=== PATIENT | male | born 1980 | race African-American/Black ===

== ENCOUNTER 2017-02-10 06:03 | Emergency (ER) | payer OTHER ==
[2017-02-10 06:13] VITALS: BP 124/76; BMI 25.6
--- NOTE | 2017-02-10 06:51 | DR.GENAD ---
HPI - PCP Primary Care Physician: TEREZA - Complaint/Symptoms Chief Complaint:: LEFT LOWER ABDOMINAL PAIN; DENIES DYSURIA. 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 Self Treatment fo Chief Complaint: TYLENOL - Nurses notes reviewed Nurses Notes Review: Yes - Source History Provided: Patient - Mode of Arrival Mode of Arrival: Ambulatory - Timing Onset of Chief Complaint: 02/09/17 Came on: Suddenly - Duration Duration: Intermittent How lon Duration: Days - Location Location: lowwer abdomin - Severity Severity: Moderate - Modifying Factors Worsens:: lifting - Associated Signs and Symptoms Associated Signs and Symptoms: pain <VINNIE DANGELO - Last Filed: 02/10/17 08:18> - HPI Comment HPI Comment: LEFTED HEAVY DOOR AT WORK RECENTLY.. DENIES DYSURIA. NO FEVER. - Complaint/Symptoms Chief Complaint Doctors Comments: LEFT LOWER ABD PAIN. <CHARI CHAVIRA - Last Filed: 02/11/17 08:58> PMH - PMH Past Medical History: No Past Surgical History: Yes Surgical History: Ortho Surgery Past Surgical History Comment: RIGHT KNEE AND RIGHT FOOT - Family History History of Family Medical Conditions: No - Social History Type of Tobacco Use: Cigarettes Alcohol Use: None Do you use any recreational Drugs:: No Lives With: Family Lives Where: Home - infectious screening In the last 2 months have you had wt loss of >10#?: NO Have you had fever, night sweats or hemotysis?: No Have you traveled outside the country in the last 6 months?: No Isolation: Standard <VINNIE DANGELO - Last Filed: 02/10/17 08:18> ROS - Review of Systems Constitutional: No Symptoms Reported Eyes: No Symptoms Reported ENTM: No Symptoms Reported Respiratoy: No Symptoms Reported Cardiovascular: No Symptoms Reported Gastrointestinal/Abdominal: Abdominal Pain (lower quadrants) Genitourinary: No Symptoms Reported Neurological: No Symptoms Reported Musculoskeletal: No Symptoms Reported Integumentary: No Symptoms Reported Hematologic/Lymphatic: No Symptoms Reported Endocrine: No Symptoms Reported Psychiatric: No Symptoms Reported <VINNIE DANGELO - Last Filed: 02/10/17 08:18> PE - General Limitations: No Limitations General Appearance: Alert, In No Apparent Distress - Head Head Exam: Normal Inspection - Eyes Eye exam: Normal Appearance, EOMI. negative: Scleral Icterus, Conjunctival Injection - ENT ENT Exam: Normal Exam External Ear Exam: Normal External Inspection - Neck Neck Exam: Normal Inspection, Full ROM, Trachea Midline - Respiratory Respiratory Exam: Normal Lung Sounds Bilat. negative: Accessory Muscle Use, Respiratory Distress Respiratory Exam: Bilateral Clear to Auscultation - Cardiovascular Cardiovascular Exam: Regular Rate - Abdominal Exam Abdominal Exam: Normal Inspection, Normal Bowel Sounds, Soft, Tenderness (lower quadrant pain). negative: Distention, Guarding Abdominal Tenderness: LLQ - Extremities Extremities Exam: Normal Inspection, Full ROM - Back Back Exam: Normal Inspection, Full ROM - Neurologic Neurological Exam: Alert, Oriented X3, CN II-XII Intact - Psychiatric Psychiatric Exam: Normal Affect - Skin Skin Exam: Intact, Normal Color <VINNIE DANGELO - Last Filed: 02/10/17 08:18> - Vital Signs Vitals: Temperature 98.1 F Pulse Rate 79 Respiratory Rate 20 Blood Pressure 124/76 O2 Sat by Pulse Oximetry 99 MDM - Differential Diagnosis Differential Diagnosis: ABDOMINAL PAIN, KIDNEY STONE, MUSCULOSKELETAL PAIN. <CHARI CHAVIRA - Last Filed: 02/11/17 08:58> Course - Treatment Treatment: SEE ORDERS - Education/Counseling Education/Counseling: Patient, Education Educated On: Diagnosis, Needs for Follow Up <CHARI CHAVIRA - Last Filed: 02/11/17 08:58> ROR - Labs Reviewed Laboratory Results Reviewed?: Yes Result Diagrams: 02/10/17 07:15 02/10/17 07:15 - XRAY XRAY Interpreted by: Radiologist XRAY Findings: REPORT DISCUSS WITH PATIENT. <CHARI CHAVIRA - Last Filed: 02/11/17 08:58> - Labs Reviewed Laboratory: WBC 6.5 X10^3/uL (3.6-10.0) 02/10/17 07:15 RBC 4.86 X10^6/uL (4.7-6.0) 02/10/17 07:15 Hgb 15.2 g/dL (13.5-18.0) 02/10/17 07:15 Hct 44.9 % (42.0-54.0) 02/10/17 07:15 MCV 92.4 fL (80.0-100.0) 02/10/17 07:15 MCH 31.3 pg (27.0-34.0) 02/10/17 07:15 MCHC 33.9 g/dL (33.0-35.0) 02/10/17 07:15 RDW 13.4 % (11.6-16.5) 02/10/17 07:15 Plt Count 164 X10^3/uL (150.0-450.0) 02/10/17 07:15 MPV 9.4 fL (7.4-11.0) 02/10/17 07:15 Neut % 46.9 % (42.0-75.0) 02/10/17 07:15 Lymph % 30.3 % (21.0-51.0) 02/10/17 07:15 [place] % 13.2 % (0.0-13.0) H 02/10/17 07:15 Eos % 8.8 % (0.9-2.9) H 02/10/17 07:15 Baso % 0.8 % (0.2-1.0) 02/10/17 07:15 Neut # 3.1 x10^3/uL (2.2-4.8) 02/10/17 07:15 Lymph # 2.0 X10^3/uL (1.3-2.9) 02/10/17 07:15 [place] # 0.9 x10^3/uL (0.3-0.8) H 02/10/17 07:15 Eos # 0.6 x10^3/uL (0.0-0.2) H 02/10/17 07:15 Baso # 0.1 X10^3/uL (0.0-0.1) 02/10/17 07:15 Absolute Nucleated RBC 0.0 /100WBC 02/10/17 07:15 Sodium 139 mmol/L (136-145) 02/10/17 07:15 Corrected Sodium TNP 02/10/17 07:15 Potassium 4.1 mmol/L (3.5-5.1) 02/10/17 07:15 Chloride 106 mmol/L (98-107) 02/10/17 07:15 Carbon Dioxide 30.1 mmol/L (21-32) 02/10/17 07:15 BUN 18 mg/dL (7-18) 02/10/17 07:15 Creatinine 1.02 mg/dL (0.70-1.30) 02/10/17 07:15 Est GFR (MDRD) Af Amer > 60 (>60) 02/10/17 07:15 Est GFR (MDRD) Non-Af > 60 (>60) 02/10/17 07:15 Glucose 106 mg/dL (65-99) H 02/10/17 07:15 Calcium 9.0 mg/dL (8.5-10.1) 02/10/17 07:15 Corrected Calcium TNP 02/10/17 07:15 Total Bilirubin 0.30 mg/dL (0.2-1.0) 02/10/17 07:15 AST 37 Units/L (15-37) 02/10/17 07:15 ALT 43 Units/L (12-78) 02/10/17 07:15 Alkaline Phosphatase 68 Units/L (46-116) 02/10/17 07:15 Total Protein 7.5 g/dL (6.4-8.2) 02/10/17 07:15 Albumin 3.6 g/dL (3.4-5.0) 02/10/17 07:15 Globulin 3.9 g/dL (2.5-4.5) 02/10/17 07:15 Albumin/Globulin Ratio 0.9 Ratio (1.1-2.1) L 02/10/17 07:15 Amylase 67 Units/L (25-115) 02/10/17 07:15 Lipase 162 Units/L (73-393) 02/10/17 07:15 Specimen Type Clean catch urine 02/10/17 06:56 Urine Color Yellow (YELLOW) 02/10/17 06:56 Urine Appearance Clear (CLEAR) 02/10/17 06:56 Urine pH 6.5 (5.0 - 8.0) 02/10/17 06:56 Ur Specific [place] 1.025 (1.000-1.030) 02/10/17 06:56 Urine Protein 2+ (NEGATIVE) 02/10/17 06:56 Urine Glucose (UA) Negative (NEGATIVE) 02/10/17 06:56 Urine Ketones Negative (NEGATIVE) 02/10/17 06:56 Urine Occult Blood 2+ (NEGATIVE) 02/10/17 06:56 Urine Nitrite Negative (NEGATIVE) 02/10/17 06:56 Urine Bilirubin Negative (NEGATIVE) 02/10/17 06:56 Urine Urobilinogen 2+ (NORMAL) 02/10/17 06:56 Ur Leukocyte Esterase 1+ (NEGATIVE) 02/10/17 06:56 Urine RBC 3-5 /HPF (NEGATIVE) 02/10/17 06:56 Urine WBC 2-4 /HPF (NEGATIVE) 02/10/17 06:56 Ur Squamous Epith Cells Rare /HPF (NEGATIVE) 02/10/17 06:56 Calcium Oxalate Crystal Few /HPF (NEGATIVE) 02/10/17 06:56 Amorphous Sediment 1+ /HPF (NEGATIVE) 02/10/17 06:56 Urine Bacteria Negative /HPF (NEGATIVE) 02/10/17 06:56 Urine Mucus Few /HPF (NEGATIVE) 02/10/17 06:56 Ur Culture Indicated? No/not indicated 02/10/17 06:56 <VINNIE DANGELO - Last Filed: 02/10/17 08:18> <CHARI CHAVIRA - Last Filed: 02/11/17 08:58> - Diagnosis Discharge Problem: Back pain, Musculoskeletal pain, Femoral acetabular impingement - Discharge Plan Disposition: 01 HOME, SELF-CARE Condition: Stable Prescriptions: Cyclobenzaprine HCl [FLEXERIL 10 MG *] 10 mg PO TID #20 tab Ibuprofen [MOTRIN TAB 800 MG *] 800 mg PO Q8H PRN #20 tab PRN Reason: Pain/Inflammation - Follow ups/Referrals Follow ups/Referrals: Harley Benton [Primary Care Provider] - 3 days - Instructions Instructions: Musculoskeletal Pain, Back Pain, Adult, [id number] Additional Instructions: RETURN TO ED IF WORSE. FOLLOW UP WITH PRIMARY CARE FOR FURTHER MANAGEMENT PLAN FOR CT FINDINGS
[2017-02-10 07:03] LABS: BILIRUBIN,URINE NEGATIVE (NEGATIVE); BLOOD/HEMOGLOBIN,URINE 2+ (NEGATIVE); GLUCOSE, URINE NEGATIVE (NEGATIVE); KETONES,URINE NEGATIVE (NEGATIVE); LEUKOCYTE ESTERASE ,URINE 1+ (NEGATIVE); NITRITES,URINE NEGATIVE (NEGATIVE); PH,URINE 6.5 (5.0 - 8.0); PROTEIN,URINE 2+ (NEGATIVE); UROBILINOGEN,URINE 2+ (NORMAL)
[2017-02-10 07:16] LABS: AMORPHOUS SEDIMENT,UR 1+ /HPF (NEGATIVE); APPEARANCE,URINE CLEAR (CLEAR); BACTERIA,URINE NEGATIVE /HPF (NEGATIVE); CALCIUM OXALATE CRYSTALS,UR FEW /HPF (NEGATIVE); COLOR,URINE YELLOW (YELLOW); MUCUS,URINE FEW /HPF (NEGATIVE); SQUAMOUS EPITHELIAL CELL,UR RARE /HPF (NEGATIVE)
[2017-02-10 07:20] LABS: BASOPHILS # (AUTO) 0.1 X10^3/uL (0.0-0.1); BASOPHILS % (AUTO) 0.8 % (0.2-1.0); EOSINOPHILS # (AUTO) 0.6 x10^3/uL (0.0-0.2); EOSINOPHILS % (AUTO) 8.8 % (0.9-2.9); HEMATOCRIT 44.9 % (42.0-54.0); HEMOGLOBIN 15.2 g/dL (13.5-18.0); LYMPHOCYTES % (AUTO) 30.3 % (21.0-51.0); MEAN CORPUSCULAR HEMOGLOBIN 31.3 pg (27.0-34.0); MEAN CORPUSCULAR HGB CONC 33.9 g/dL (33.0-35.0); MEAN CORPUSCULAR VOLUME 92.4 fL (80.0-100.0); MEAN PLATELET VOLUME 9.4 fL (7.4-11.0); MONOCYTES # (AUTO) 0.9 x10^3/uL (0.3-0.8); MONOCYTES % (AUTO) 13.2 % (0.0-13.0); NEUTROPHILS # (AUTO) 3.1 x10^3/uL (2.2-4.8); NEUTROPHILS % (AUTO) 46.9 % (42.0-75.0); PLATELET COUNT 164 X10^3/uL (150.0-450.0); RED BLOOD COUNT 4.86 X10^6/uL (4.7-6.0); RED CELL DISTRIBUTION WIDTH 13.4 % (11.6-16.5); WHITE BLOOD COUNT 6.5 X10^3/uL (3.6-10.0)
[2017-02-10 07:33] LABS: ALANINE AMINOTRANSFERASE 43 Units/L (12-78); ALBUMIN 3.6 g/dL (3.4-5.0); ALKALINE PHOSPHATASE 68 Units/L (46-116); AMYLASE 67 Units/L (25-115); ASPARTATE AMINO TRANSFERASE 37 Units/L (15-37); BLOOD UREA NITROGEN 18 mg/dL (7-18); CARBON DIOXIDE 30.1 mmol/L (21-32); CHLORIDE 106 mmol/L (98-107); CREATININE 1.02 mg/dL (0.70-1.30); GLUCOSE 106 mg/dL (65-99); LIPASE 162 Units/L (73-393); SODIUM 139 mmol/L (136-145); TOTAL PROTEIN 7.5 g/dL (6.4-8.2); eGFR BLACK RACES > 60 (>60); eGFR NON BLACK RACES > 60 (>60)
--- NOTE | 2017-02-10 08:06 | RAD ---
HISTORY: Abdominal pain. Study: Acute abdominal series Comparison: None. Findings: The trachea is midline. The cardiac silhouette is unremarkable. The lungs are clear without focal i nfiltrate or effusion. The bony thorax is unremarkable. Flat plate and upright evaluation of the abdomen demonstrates a nonspecific/nonobstructive bowel gas pattern with air and stool to the level of the rectum. No obvious free air. No pathological soft tis [place] mass or calcification can be observed. The bony structures are grossly intact. IMPRESSION: 1. No acute cardiopulmonary disease. 2. No evidence for acute abdominal pathology identified. Reported By:
--- NOTE | 2017-02-10 08:24 | CT ---
HISTORY: Hematuria. Study: CT abdomen and pelvis without contrast Comparison: Acute abdominal series dated same day. Technique: Multiple axial images of the abdomen and pelvis were obtained from the lung bases to the pubic symphy sis without the administration of IV contrast. Dose reduction techniques including Automated Exposur e Control (AEC) and adjustment of mA and kV were utilized. Findings: Limited study secondary to lack of IV and oral contrast. The visualized portions of the lung bases are unremarkable. Punctate nonobstructing stone within the interpolar left kidney. The liver, spleen, pancreas, right kidney, and adrenal glands are unremarkabl e in their CT appearance. The gallbladder is unremarkable in its CT appearance. No significant mesen teric lymphadenopathy or stranding can be observed. No free fluid or free air is seen within the abd omen. Limited evaluation of the bowel secondary to lack of oral contrast and collapse. The large and small bowel otherwise appear normal. The appendix is not well seen. The urinary bladder is grossly unremarkable. Constellation of findings likely representing bilateral femoral acetabular impingement. Remaining osseous structures appear normal for age. IMPRESSION: 1. Punctate nonobstructing stone within the interpolar left kidney. No other obvious stones within th e collecting system. 2. Constellation of findings likely representing bilateral femoral acetabular impingement. Reported By:
== END 2017-02-10 09:41 | disposition home or self-care (01) ==
LOC: ER 06:03
DX: M25.859 Other specified joint disorders, unspecified hip (principal); M54.89 Other dorsalgia; M79.1 Myalgia; R10.84 Generalized abdominal pain; X50.0XXA Overexertion from strenuous movement or load, initial encounter; Y92.69 Other specified industrial and construction area as the place of occurrence of the external cause
CPT/HCPCS: 36415; 74022; 74176; 80053; 81001; 82150; 83690; 85025; 99283

== ENCOUNTER → 2017-02-10 | Outpatient (CLI) | payer OTHER ==
[2012-06-19 20:12] VITALS: BP 123/76
--- NOTE | 2017-02-11 13:01 | MRI ---
MRI right shoulder without contrast Indication: Right shoulder pain Comparison: 12/01/2012 Technique: Multiplanar, multisequence MR images of the right shoulder were obtained without contrast. Findings: There is moderate diffuse supraspinatus tendinosis with full-thickness tear of the anterior half of the tendon at the critical zone, with mild medial tendon retraction. There is partial unders urface tear extension into the conjoined tendon fibers. There is also high-grade partial tear of the undersurface fibers of the distal subscapularis tendon. The teres minor and intra-articular biceps te ndons are grossly intact, although there is some intermediate intrasubstance signal within the intra- articular portion of the biceps tendon. No significant medial subluxation of the extra-articular long head biceps tendon. There is some attenuation and blunting of the anterior inferior labrum, without discrete linear tear. The remainder of the labrum is otherwise grossly intact. There are minimal degenerative changes of the AC joint with a type 2 acromion. No marked rotator cuff encroachment. Small amount of fluid is present within the subacromial/subdeltoid bursa. No significa nt muscle atrophy. Impression: 1. High-grade tear of the supraspinatus tendon with full-thickness component of the anterior half of the tendon at the critical zone, with mild tendon retraction. 2. High-grade partial undersurface tear of the superior subscapularis tendon. Low-grade partial under surface tear of the infraspinatus. 3. Mild intra-articular biceps tendinosis 4. Fraying of the anterior inferior labrum 5. Subacromial/subdeltoid bursitis Reported By:
== END | disposition home or self-care (01) ==
LOC: RAD 13:41
PROVIDERS: ATTEND Internal Medicine
DX: M25.511 Pain in right shoulder (principal); S43.491A Other sprain of right shoulder joint, initial encounter; X58.XXXA Exposure to other specified factors, initial encounter; M75.101 Unspecified rotator cuff tear or rupture of right shoulder, not specified as traumatic; M75.21 Bicipital tendinitis, right shoulder; M75.51 Bursitis of right shoulder
CPT/HCPCS: 73221